=== PATIENT | female | born 1945 | race Caucasian/White ===

== ENCOUNTER 2016-09-03 07:02 | Day surgery (SDC) | payer OTHER, BC ==
[2016-09-02 12:54] VITALS: BMI 24.7
[2016-09-03] MEDS ORDERED: SUCCINYLCHOLINE CHLORIDE 200 MG/10 ML VIAL ONE (07:42)
[2016-09-03] MEDS ORDERED: LIDOCAINE HCL/PF 2% SDV 5ML VIAL ONE (07:42)
[2016-09-03] MEDS ORDERED: PROPOFOL 20 ML ONE ×5 (07:42)
[2016-09-03 08:39] VITALS: TEMP 97.9
[2016-09-03 09:05] VITALS: PULSE 57
[2016-09-03 09:11] VITALS: BP 128/59
--- NOTE | 2016-09-04 13:01 | PATH ---
Surgical Pathology Report Patient Name: AMRITA MILLER [facility]. Rec. #: [id number] /Age/Gender: 1945 (Age: 71) / F Account: [id number] Location: [facility]-ENDOSCOPY Taken: 09/03/2016 Received: 09/03/2016 Reported: 09/04/2016 Physicians: Abhijeet العلي M.D. Specimen(s) Received POLYP SIGMOID Clinical History Rectal bleeding Diverticulosis, sigmoid polyp Final Diagnosis COLON, SIGMOID, POLYP, POLYPECTOMY: HYPERPLASTIC POLYP. Electronically Signed Max Wahl M.D. Gross Description Received in formalin, labeled "sigmoid polyp" is a guerra, irregular portion of soft tissue measuring 0.5 cm in greatest dimension. The specimen is submitted in toto in one cassette. 09/03/201609/03/2016
== END 2016-09-03 09:28 | disposition home or self-care (01) ==
LOC: JASU-ENDO 07:02
PROVIDERS: ATTEND Internal Medicine Gastroenterology
PROC: 0DBN8ZX Excision of Sigmoid Colon, Via Natural or Artificial Opening Endoscopic, Diagnostic (ICD-10-PCS; principal; 2016-09-03 08:00)
DX: K62.5 Hemorrhage of anus and rectum (principal); K57.30 Diverticulosis of large intestine without perforation or abscess without bleeding; D12.5 Benign neoplasm of sigmoid colon
CPT/HCPCS: 88305-TC